=== PATIENT | male | born 1955 | race Caucasian/White ===

== ENCOUNTER 2020-03-16 13:19 | Outpatient (CLI) | payer OTHER | END 2020-03-16 13:20 | disposition home or self-care (01) | LOC: DTY/OP 13:19 | PROVIDERS: ATTEND Surgery | DX: E66.01 Morbid (severe) obesity due to excess calories (principal) | CPT/HCPCS: 97802 ==

== ENCOUNTER 2020-04-15 08:06 | Outpatient (CLI) | payer OTHER | END 2020-04-15 08:07 | disposition home or self-care (01) | LOC: DTY/OP 08:06 | PROVIDERS: ATTEND Surgery | DX: E66.01 Morbid (severe) obesity due to excess calories (principal) | CPT/HCPCS: 97802 ==

== ENCOUNTER 2020-04-24 13:05 | Outpatient (CLI) | payer OTHER ==
--- NOTE | 2020-04-24 15:15 | ULT ---
US Renal Bilateral STANDARD History: Renal insufficiency Comparison: None. Findings: Real-time grayscale and color evaluation of the kidneys and urinary bladder was performed. Right kidney measures 10.9 x 7.1 x 6.7 cm and the left kidney measures 12.4 x 6.3 x 6.5 cm. No renal mass, hydronephrosis or abnormal calcifications. Urinary bladder is unremarkable. Impression: No evidence for obstructive uropathy.
== END 2020-04-24 13:06 | disposition home or self-care (01) ==
LOC: BICULT 13:05
PROVIDERS: ATTEND Urology
DX: N40.1 Benign prostatic hyperplasia with lower urinary tract symptoms (principal); N28.9 Disorder of kidney and ureter, unspecified
CPT/HCPCS: 76770

== ENCOUNTER 2020-05-29 06:33 | Outpatient (CLI) | payer OTHER ==
[2020-05-29 11:46] LABS: Hemoglobin 15.5 g/dL (14.0-18.0); Mean Corpuscular HGB CONC 33.5 G/DL (32.0-36.0); Mean Corpuscular Hemoglobin 32.8 PG (27.0-33.0); Mean Corpuscular Volume 97.7 fl (80.0-100.0); Mean Platelet Volume 10.3 fl (7.4-10.4); Platelet Count 273 10x3/uL (130-400); Red Blood Cell (RBC) Count 4.73 10x6/uL (4.40-5.80); White Blood Cell (WBC) Count 6.8 10x3/uL (4.5-11.0)
[2020-05-29 11:54] LABS: Bilirubin Neg (Negative); Blood, Urine Negative (Negative); Clarity Clear (Clear); Glucose, Urine (Dipstick) Normal (Negative); Ketone, Urine Negative (Negative); Leukocyte Negative (Negative); Nitrite Negative (Negative); Protein, Urine (Dipstick) Negative (Neg-Trace); Specific Gravity, Urine 1.015 (1.002-1.036); Urobilinogen Normal mg/dL (Less than 2)
[2020-05-29 12:09] LABS: INR-International Normal Ratio 1.2; PTT 36.2 sec (22.0-33.0); Prothrombin Time 12.7 sec (9.5-12.1)
[2020-05-29 12:22] LABS: Anion Gap 16 mmol/L (10-20); BUN (Urea Nitrogen) 29 mg/dL (8.4-25.7); Calc. Creatinine Clearance 0 mL/min (70-130); Calcium 9.4 mg/dL (7.8-10.44); Carbon Dioxide 28 mmol/L (23-31); Chloride 103 mmol/L (98-107); Glucose 78 mg/dL (80-115); Potassium 4.7 mmol/L (3.5-5.1); Sodium 142 mmol/L (136-145)
[2020-05-29 12:43] LABS: RBC/HPF None Seen HPF (0-3); WBC/HPF 0-3 HPF (0-3)
[2020-05-29 12:44] LABS: Bacteria/HPF Rare-Few HPF (None Seen); Squamous Epithelial 0-3 HPF (0-3)
[2020-05-29 17:12] LABS: SARS-CoV-2 MS2 Positive; SARS-CoV-2 N Gene Negative; SARS-CoV-2 S Gene Negative; SARS-CoV-2 by NAA Not Detected (NotDetected); SARS-CoV-2 orf1ab Negative
== END 2020-05-29 06:34 | disposition home or self-care (01) ==
LOC: LABBT 06:33
PROVIDERS: ATTEND Urology
DX: Z01.812 Encounter for preprocedural laboratory examination (principal); N40.1 Benign prostatic hyperplasia with lower urinary tract symptoms; I48.20 Chronic atrial fibrillation, unspecified; N28.9 Disorder of kidney and ureter, unspecified; E66.9 Obesity, unspecified; R35.0 Frequency of micturition; Z81.8 Family history of other mental and behavioral disorders; Z20.828 Contact with and (suspected) exposure to other viral communicable diseases
CPT/HCPCS: 80048; 81001; 85027; 85610; 85730; 87086; 87635; U0003

== ENCOUNTER 2020-06-03 06:27 | Day surgery (SDC) | payer OTHER ==
[2020-05-29 14:11] VITALS: BMI 39.9
[2020-06-03] MEDS ORDERED: Levofloxacin 500 mg/D5W 100 ml Premix Bag ONE (07:47)
[2020-06-03 07:56] LABS: INR-International Normal Ratio 1.1; PTT 31.4 sec (22.9-36.1); Prothrombin Time 14.1 sec (12.0-14.7)
[2020-06-03] MEDS ORDERED: Fentanyl 100 MCG/2 ML VIAL ONE (08:13)
[2020-06-03] MEDS ORDERED: Ondansetron PF 4 MG/2 ML Vial ONE (09:28)
[2020-06-03] MEDS ORDERED: Lidocaine 1% PF 5 ML VIAL ONE (09:28)
[2020-06-03] MEDS ORDERED: PROPOFOL 200 MG/20 ML VIAL ONE (09:28)
--- NOTE | 2020-06-03 09:30 | OP ---
DATE OF PROCEDURE: 06/03/2020 PREOPERATIVE DIAGNOSIS: A 64-year-old male with history of benign prostatic hyperplasia, IPSS score of 28. POSTOPERATIVE DIAGNOSIS: A 64-year-old male with history of benign prostatic hyperplasia, IPSS score of 28. PROCEDURE PERFORMED: Cystoscopy, UroLift implant x4. ANESTHESIA: LMA. COMPLICATIONS: None apparent. DISPOSITION: To recovery room in stable condition. INDICATIONS FOR PROCEDURE AND HISTORY: Mr. Edge is a pleasant 64-year-old male, referred for BPH as he desired to proceed with UroLift, he states that he researched this and would like to proceed and would like to come off with his tamsulosin. Risks and complications of the procedure have been discussed with him in detail including, but not limited to, bleeding, pain, infection, injury to adjacent organs, chronic and possible need for removal of UroLift implant, possible incrustation, chronic pain. All questions answered to his satisfaction and desired to proceed. DESCRIPTION OF PROCEDURE: After informed consent was obtained, the patient was taken to the operating room, placed in dorsal lithotomy position with the genital area prepped and draped in the usual surgical sterile fashion. A 21-Egyptian cystoscope was utilized for cystoscopy, which demonstrated normal anterior urethra. Prostatic urethra demonstrated mild bilobar hyperplasia, obstructing component is mostly high median bar. Bladder was entered, which demonstrated trabeculation. UOs were about 3 mm proximal to the bladder neck with no bladder tumor seen. At this time, we transitioned to the UroLift device with a visual obturator. A total of four implants were placed, stacking maneuver performed at the level of the base of the prostate. This opened up a nice anterior channel, noted for him. There was no evidence of visible implant near the level of the bladder neck. He tolerated the procedure well. An 18-Egyptian Portillo catheter placed with three way Portillo. We will watch him for degree of hematuria and anticipate voiding trial versus discharge with Portillo catheter overnight. Job ID: [id number] [facility] [place]
[2020-06-03] MEDS ORDERED: Phenazopyridine HCl 100 MG TAB ONE (09:36)
== END 2020-06-03 12:50 | disposition home or self-care (01) ==
LOC: SDC 06:27
PROVIDERS: ATTEND Urology
PROC: 0T7D8DZ Dilation of Urethra with Intraluminal Device, Via Natural or Artificial Opening Endoscopic (ICD-10-PCS; principal; 2020-06-03)
DX: N40.1 Benign prostatic hyperplasia with lower urinary tract symptoms (principal); R35.0 Frequency of micturition; N32.89 Other specified disorders of bladder; I48.20 Chronic atrial fibrillation, unspecified; N28.9 Disorder of kidney and ureter, unspecified; I10 Essential (primary) hypertension; G47.30 Sleep apnea, unspecified; J30.2 Other seasonal allergic rhinitis; G89.29 Other chronic pain; M54.9 Dorsalgia, unspecified; G47.33 Obstructive sleep apnea (adult) (pediatric); M15.9 Polyosteoarthritis, unspecified; I73.9 Peripheral vascular disease, unspecified; E66.9 Obesity, unspecified; Z68.41 Body mass index [BMI] 40.0-44.9, adult; Z79.01 Long term (current) use of anticoagulants; Z79.1 Long term (current) use of non-steroidal anti-inflammatories (NSAID); Z79.899 Other long term (current) drug therapy
CPT/HCPCS: 85610; 85730; C1889; J1956; J2405; J2704; J3010

== ENCOUNTER 2020-07-24 09:35 | Outpatient (CLI) | payer OTHER | END 2020-07-24 09:36 | disposition home or self-care (01) | LOC: DTY/OP 09:35 | PROVIDERS: ATTEND Surgery | DX: Z01.818 Encounter for other preprocedural examination (principal); Z71.3 Dietary counseling and surveillance | CPT/HCPCS: 97802 ==

== ENCOUNTER 2020-07-31 08:31 | Outpatient (CLI) | payer OTHER | END 2020-07-31 08:32 | disposition home or self-care (01) | LOC: DTY/OP 08:31 | PROVIDERS: ATTEND Surgery | DX: Z01.818 Encounter for other preprocedural examination (principal) | CPT/HCPCS: 97802 ==

== ENCOUNTER 2020-08-06 09:23 | Outpatient (CLI) | payer OTHER | END 2020-08-06 09:24 | disposition home or self-care (01) | LOC: DTY/OP 09:23 | PROVIDERS: ATTEND Surgery | DX: Z01.812 Encounter for preprocedural laboratory examination (principal) | CPT/HCPCS: 97802 ==

== ENCOUNTER 2020-08-20 08:49 | Outpatient (CLI) | payer OTHER | END 2020-08-20 08:50 | disposition home or self-care (01) | LOC: DTY/OP 08:49 | PROVIDERS: ATTEND Surgery | DX: Z01.812 Encounter for preprocedural laboratory examination (principal) | CPT/HCPCS: 97802 ==

== ENCOUNTER 2020-08-26 08:22 | Outpatient (CLI) | payer OTHER | END 2020-08-26 08:23 | disposition home or self-care (01) | LOC: DTY/OP 08:22 | PROVIDERS: ATTEND Surgery | DX: Z01.812 Encounter for preprocedural laboratory examination (principal) | CPT/HCPCS: 97802 ==

== ENCOUNTER 2020-09-14 11:37 | Outpatient (CLI) | payer OTHER | END 2020-09-14 11:38 | disposition home or self-care (01) | LOC: BICRAD 11:37 | PROVIDERS: ATTEND Internal Medicine Pulmonary Disease | DX: R06.00 Dyspnea, unspecified (principal) | CPT/HCPCS: 71046 ==

== ENCOUNTER 2020-09-15 08:35 | Outpatient (CLI) | payer OTHER | END 2020-09-15 08:36 | disposition home or self-care (01) | LOC: DTY/OP 08:35 | PROVIDERS: ATTEND Surgery | DX: Z01.818 Encounter for other preprocedural examination (principal) | CPT/HCPCS: 97802 ==

== ENCOUNTER 2020-09-24 08:39 | Outpatient (CLI) | payer OTHER | END 2020-09-24 08:40 | disposition home or self-care (01) | LOC: DTY/OP 08:39 | PROVIDERS: ATTEND Surgery | DX: Z01.818 Encounter for other preprocedural examination (principal) | CPT/HCPCS: 97802 ==

== ENCOUNTER 2020-11-12 09:48 | Outpatient (CLI) | payer OTHER ==
[2020-11-12 18:31] LABS: SARS-CoV-2 PCR by NAA Not Detected (NotDetected)
== END 2020-11-12 09:49 | disposition home or self-care (01) ==
LOC: LABBT 09:48
PROVIDERS: ATTEND Surgery
DX: Z01.812 Encounter for preprocedural laboratory examination (principal); I10 Essential (primary) hypertension; Z20.822 Contact with and (suspected) exposure to COVID-19
CPT/HCPCS: 87635; U0003; U0005

== ENCOUNTER 2020-11-12 10:30 | Inpatient (IN) | payer OTHER, MEDICARE ==
[2020-11-17] MEDS ORDERED: Scopolamine 1.5 mg/72 hour Patch ONE (06:25)
[2020-11-17] MEDS ORDERED: cefOXitin Sodium/Dextrose 2 GM/50 ML BAG ONE (06:25)
[2020-11-17] MEDS ORDERED: Enoxaparin Sodium 40 MG/0.4 ML SYRINGE ONE (06:26)
[2020-11-17] MEDS ORDERED: Fentanyl 100 MCG/2 ML VIAL ONE ×3 (06:45→09:59)
[2020-11-17] MEDS ORDERED: Lidocaine 1% w/Epinephrine 1:100K 20 ML VIAL ONE (06:46)
[2020-11-17] MEDS ORDERED: Bupivacaine 0.25% HCL 30 ML VIAL ONE (06:46)
[2020-11-17] MEDS ORDERED: Hydrocodone-Acetamin 15 ML UDCUP PO PRN (06:57)
[2020-11-17] MEDS ORDERED: Dextrose 5% in Water 1,000 ML IV PRN (06:57)
[2020-11-17] MEDS ORDERED: Promethazine HCl 25 MG/ML VIAL IM PRN (06:57)
[2020-11-17] MEDS ORDERED: hydrALAZINE 20 MG/ML VIAL SLOW IVP PRN (06:57)
[2020-11-17] MEDS ORDERED: Ondansetron PF 4 MG/2 ML Vial IVP PRN (06:57)
[2020-11-17] MEDS ORDERED: Dextrose 50% Abboject 50 ML SYRINGE SLOW IVP PRN (06:57)
[2020-11-17] MEDS ORDERED: diphenhydrAMINE 50 MG/ML VIAL IVP PRN (06:57)
[2020-11-17] MEDS ORDERED: Morphine 2 MG/ML VIAL SLOW IVP PRN (06:57)
[2020-11-17] MEDS ORDERED: PHENYLEPHRINE-NS 100 MCG/ML 10 ML SYRINGE ONE (07:12)
[2020-11-17] MEDS ORDERED: Glycopyrrolate 0.2 MG/ML 5 ML SYRINGE ONE (07:12)
[2020-11-17] MEDS ORDERED: PROPOFOL 200 MG/20 ML VIAL ONE (07:12)
[2020-11-17] MEDS ORDERED: Lidocaine 1% PF 5 ML VIAL ONE (07:12)
[2020-11-17] MEDS ORDERED: Metoprolol Tartrate 5 MG/5 ML VIAL ONE (07:12)
[2020-11-17] MEDS ORDERED: Dexamethasone 20 MG/5 ML VIAL ONE (07:12)
[2020-11-17] MEDS ORDERED: Rocuronium Bromide 10 MG/ML (10ML VIAL) ONE (07:12)
[2020-11-17] MEDS ORDERED: Sodium Chloride 0.9% (PF) 10 ML VIAL FS PRN (07:30)
[2020-11-17] MEDS ORDERED: SUGAMMADEX SODIUM 200 MG/2 ML VIAL ONE (08:26)
[2020-11-17] MEDS ORDERED: Ondansetron PF 4 MG/2 ML Vial ONE (10:04)
[2020-11-17 13:06] VITALS: BMI 35.9
[2020-11-17] MEDS: D5 1/2 NS w/20 mEq KCL 1,000 ML IV SCH ×3 (13:37→20:25)
[2020-11-17] MEDS: Ketorolac Tromethamine 30 MG/ML VIAL IVP SCH ×3 (13:37→23:17)
[2020-11-17] MEDS: Pantoprazole 40 MG VIAL IVP SCH (13:57)
[2020-11-17] MEDS: Digoxin 0.125 MG TAB PO SCH (13:57)
[2020-11-18] MEDS: D5 1/2 NS w/20 mEq KCL 1,000 ML IV SCH ×2 (05:05→14:07)
[2020-11-18] MEDS: Ketorolac Tromethamine 30 MG/ML VIAL IVP SCH ×2 (05:07→11:15)
[2020-11-18 05:46] LABS: #Lymphocytes 1.5 thou/uL (1.20-3.40); #Monocytes 0.6 thou/uL (0.11-0.59); #Neutrophils 4.1 thou/uL (1.40-6.50); %Basophils 0.6 % (0.0-1.0); %Eosinophils 0.7 % (0.0-10.0); %Lymphocytes 23.5 % (21.0-51.0); %Monocytes 9.6 % (0.0-10.0); %Neutrophils 65.6 % (42.0-75.0); Hemoglobin 13.3 g/dL (14.0-18.0); Mean Corpuscular HGB CONC 34.1 g/dL (32.0-36.0); Mean Corpuscular Volume 99.8 fL (78.0-98.0); Mean Platelet Volume 7.4 fL (7.4-10.4); Platelet Count 245 thou/uL (130-400); RBC Distribution Width 11.4 % (11.5-14.5); White Blood Cell (WBC) Count 6.3 thou/uL (4.8-10.8)
[2020-11-18] MEDS ORDERED: Enoxaparin Sodium 40 MG/0.4 ML SYRINGE SC SCH (06:00)
[2020-11-18 06:06] LABS: Anion Gap 10 mmol/L (10-20); BUN (Urea Nitrogen) 17 mg/dL (8.4-25.7); Calc. Creatinine Clearance 96 mL/min (70-130); Calcium 8.8 mg/dL (7.8-10.44); Carbon Dioxide 27 mmol/L (23-31); Chloride 105 mmol/L (98-107); Glucose 109 mg/dL (80-115); Potassium 4.3 mmol/L (3.5-5.1); Sodium 138 mmol/L (136-145)
[2020-11-18] MEDS: Digoxin 0.125 MG TAB PO SCH (08:06)
[2020-11-18] MEDS: Pantoprazole 40 MG VIAL IVP SCH (08:07)
[2020-11-18 15:50] VITALS: BP 116/71; TEMP 98
[2020-11-19] MEDS ORDERED: Enoxaparin Sodium 40 MG/0.4 ML SYRINGE SC SCH (09:00)
== END 2020-11-18 15:54 | disposition home or self-care (01) | DRG 620 ==
LOC: SURG A 11-17 05:59 → EDSTATUS 11-17 10:30 → SURG A 11-17 12:46
PROVIDERS: ADMIT Surgery; ATTEND Surgery
PROC: 0DB64Z3 Excision of Stomach, Percutaneous Endoscopic Approach, Vertical (ICD-10-PCS; principal; 2020-11-17)
PROC: 8E0W4CZ Robotic Assisted Procedure of Trunk Region, Percutaneous Endoscopic Approach (ICD-10-PCS; 2020-11-17)
DX: E88.81 Metabolic syndrome and other insulin resistance (principal); I48.20 Chronic atrial fibrillation, unspecified; Z68.42 Body mass index [BMI] 45.0-49.9, adult; E66.01 Morbid (severe) obesity due to excess calories; I10 Essential (primary) hypertension; Z20.822 Contact with and (suspected) exposure to COVID-19; Z23 Encounter for immunization; E78.5 Hyperlipidemia, unspecified; N40.1 Benign prostatic hyperplasia with lower urinary tract symptoms; R33.8 Other retention of urine; G47.33 Obstructive sleep apnea (adult) (pediatric); G89.29 Other chronic pain; M89.49 Other hypertrophic osteoarthropathy, multiple sites; E11.51 Type 2 diabetes mellitus with diabetic peripheral angiopathy without gangrene; M54.5 Low back pain; Z79.899 Other long term (current) drug therapy; Z90.49 Acquired absence of other specified parts of digestive tract; Z79.01 Long term (current) use of anticoagulants
CPT/HCPCS: 36415; 80048; 85025; 88307; 90471; 90732; C9113; G0009; J0694; J1100; J1650; J1885; J2405; J2704; J3010; J3480; S0020

== ENCOUNTER 2024-01-16 08:45 | Outpatient (CLI) | payer OTHER | END 2024-01-16 08:46 | disposition home or self-care (01) | LOC: PET 08:45 | PROVIDERS: ATTEND Internal Medicine Hematology & Oncology | DX: C22.0 Liver cell carcinoma (principal); K76.9 Liver disease, unspecified; R59.0 Localized enlarged lymph nodes; M89.9 Disorder of bone, unspecified; K72.90 Hepatic failure, unspecified without coma | CPT/HCPCS: 78815; A9552 ==

== ENCOUNTER 2024-02-13 12:42 | Outpatient (CLI) | payer OTHER | END 2024-02-13 12:43 | disposition home or self-care (01) | LOC: RAD 12:42 | PROVIDERS: ATTEND Internal Medicine Hematology & Oncology | DX: M25.512 Pain in left shoulder (principal); M89.8X1 Other specified disorders of bone, shoulder; M19.012 Primary osteoarthritis, left shoulder; S42.002A Fracture of unspecified part of left clavicle, initial encounter for closed fracture ==

== ENCOUNTER 2024-03-20 09:39 | Outpatient (CLI) | payer OTHER ==
[2024-03-20 11:06] LABS: #Basophils 0.06 10x3/uL (0.0-0.2); %Basophils 0.5 % (0.0-1.0); %Eosinophils 0.2 % (0.0-10.0); %Lymphocytes 7.7 % (21.0-51.0); %Neutrophils 84.8 % (42.0-75.0); Hematocrit 37.8 % (42.0-52.0); Hemoglobin 12.2 g/dL (14.0-18.0); Mean Corpuscular HGB CONC 32.3 g/dL (32.0-36.0); Mean Corpuscular Hemoglobin 33.2 pg (27.0-31.0); Mean Platelet Volume 9.7 fL (7.4-10.4); Platelet Count 229 10x3/uL (130-400); RBC Distribution Width 16.4 % (11.5-14.5); Red Blood Cell (RBC) Count 3.67 mill/uL (4.70-6.10)
[2024-03-20 11:23] LABS: INR-International Normal Ratio 1.1; Prothrombin Time 14.3 sec (12.0-14.7)
[2024-03-20 11:24] LABS: PTT 32.1 sec (22.9-36.1)
[2024-03-20 11:31] LABS: Anion Gap 13 mmol/L (10-20); BUN (Urea Nitrogen) 15 mg/dL (8.4-25.7); Calc. Creatinine Clearance 0 mL/min (70-130); Calcium 9.9 mg/dL (7.8-10.44); Carbon Dioxide 27 mmol/L (23-31); Chloride 104 mmol/L (98-107); Estimated GFR 93; Glucose 87 mg/dL (80-115); Potassium 4.6 mmol/L (3.5-5.1); Sodium 139 mmol/L (136-145)
[2024-03-20 14:22] LABS: ALT (SGPT) 5 U/L (8-55); AST (SGOT) 28 U/L (5-34); Albumin 3.3 g/dL (3.4-4.8); Alkaline Phosphatase 106 U/L (40-110); Bilirubin, Direct 0.6 mg/dL (0.1-0.3); Bilirubin, Total 1.7 mg/dL (0.2-1.2); Protein, Total 7.2 g/dL (5.8-8.1)
== END 2024-03-20 09:40 | disposition home or self-care (01) ==
LOC: LABBT 09:39
PROVIDERS: ATTEND Orthopaedic Surgery
DX: Z01.812 Encounter for preprocedural laboratory examination (principal); C79.9 Secondary malignant neoplasm of unspecified site
CPT/HCPCS: 80048; 80076; 80162; 85025; 85610; 85730

== ENCOUNTER 2024-03-22 07:58 | Observation (INO) | payer OTHER ==
[2024-03-20 10:08] VITALS: BMI 21.3
[2024-03-22] MEDS ORDERED: PROPOFOL 40 ML ONE (09:07)
[2024-03-22] MEDS ORDERED: fentaNYL PF 100 MCG/2 ML SYRINGE ONE (10:23)
[2024-03-22] MEDS ORDERED: CEFAZOLIN 2 GM VIAL ONE (10:27)
[2024-03-22] MEDS ORDERED: Sodium Chloride 0.9% 100 ML ONE (10:27)
[2024-03-22] MEDS ORDERED: Lidocaine 1% PF 5 ML VIAL ONE (10:42)
[2024-03-22] MEDS ORDERED: Dexamethasone 20 MG/5 ML VIAL ONE (10:42)
[2024-03-22] MEDS ORDERED: PHENYLEPHRINE-NS 100 MCG/ML 10 ML SYRINGE ONE (11:37)
[2024-03-22] MEDS ORDERED: fentaNYL 50 mcg/mL 1 mL Vial ONE ×3 (12:13→15:42)
[2024-03-22] MEDS ORDERED: Morphine IR Tab 15 MG TAB PO PRN (15:03)
[2024-03-22] MEDS: CEFAZOLIN 2 GM in Sodium Chloride 0.9% 100 ML IVPB SCH (18:02)
[2024-03-22] MEDS: Digoxin 0.125 MG TAB PO SCH (20:37)
[2024-03-22] MEDS: Morphine ER 15 MG TAB PO SCH (20:37)
[2024-03-23 05:28] LABS: #Basophils 0.03 10x3/uL (0.0-0.2); #Eosinphils Less than 0.03 10x3/uL (0.0-0.7); %Basophils 0.3 % (0.0-1.0); %Lymphocytes 6.6 % (21.0-51.0); %Monocytes 8.4 % (0.0-10.0); %Neutrophils 83.9 % (42.0-75.0); Hematocrit 33.8 % (42.0-52.0); Mean Corpuscular HGB CONC 32.5 g/dL (32.0-36.0); Mean Corpuscular Hemoglobin 33.3 pg (27.0-31.0); Mean Corpuscular Volume 102.4 fL (78.0-98.0); Mean Platelet Volume 9.5 fL (7.4-10.4); Platelet Count 231 10x3/uL (130-400); RBC Distribution Width 16.2 % (11.5-14.5)
[2024-03-23 08:33] VITALS: BP 104/60; TEMP 97.9
[2024-03-23] MEDS ORDERED: Ondansetron HCl/PF 8 MG in Sodium Chloride 0.9% 50 ML IVPB SCH (09:15)
[2024-03-23] MEDS: Ondansetron PF 4 MG/2 ML Vial IVP SCH (10:35)
[2024-03-24] MEDS ORDERED: Famotidine/PF 20 mg/2ml Vial SLOW IVP SCH (09:00)
== END 2024-03-23 12:10 | disposition home or self-care (01) ==
LOC: INTOOBSV 07:58 → SURG A 07:58 → EDSTATUS 13:03 → SURG B 16:17
PROVIDERS: ADMIT Orthopaedic Surgery; ATTEND Orthopaedic Surgery
DX: S72.102A Unspecified trochanteric fracture of left femur, initial encounter for closed fracture (principal); D49.2 Neoplasm of unspecified behavior of bone, soft tissue, and skin; I10 Essential (primary) hypertension; I48.91 Unspecified atrial fibrillation; G47.33 Obstructive sleep apnea (adult) (pediatric); I73.9 Peripheral vascular disease, unspecified; Z79.899 Other long term (current) drug therapy; X58.XXXA Exposure to other specified factors, initial encounter
CPT/HCPCS: 27506; 73552; 85025; 97116; C1713 ×3; J2405; J2704; J3010; 36415; 88307; J1100

== ENCOUNTER 2024-04-28 11:42 | Emergency (ER) | payer OTHER ==
[2024-04-28 12:28] LABS: #Basophils Less than 0.03 10x3/uL (0.0-0.2); #Eosinophils Less than 0.03 10x3/uL (0.0-0.7); %Basophils 0.3 % (0.0-1.0); %Lymphocytes 11.9 % (21.0-51.0); %Monocytes 11.6 % (0.0-10.0); %Neutrophils 75.4 % (42.0-75.0); Hematocrit 33.5 % (42.0-52.0); Hemoglobin 11.3 g/dL (14.0-18.0); Mean Corpuscular HGB CONC 33.7 g/dL (32.0-36.0); Mean Corpuscular Volume 103.7 fL (78.0-98.0); Mean Platelet Volume 9.1 fL (7.4-10.4); Platelet Count 305 10x3/uL (130-400); RBC Distribution Width 14.5 % (11.5-14.5); Red Blood Cell (RBC) Count 3.23 mill/uL (4.70-6.10)
[2024-04-28] MEDS ORDERED: Iopamidol-370 76% 500 ML MDV (1 ML CHARGE) ONE (12:46)
[2024-04-28 13:12] LABS: Troponin I 0.031 ng/mL (< 0.028)
[2024-04-28 13:17] LABS: ALT (SGPT) 7 U/L (8-55); AST (SGOT) 39 U/L (5-34); Albumin 3.2 g/dL (3.4-4.8); Alkaline Phosphatase 342 U/L (40-110); Anion Gap 16 mmol/L (10-20); BUN (Urea Nitrogen) 15 mg/dL (8.4-25.7); Bilirubin, Total 1.4 mg/dL (0.2-1.2); Calc. Creatinine Clearance 0 mL/min (70-130); Calcium 8.8 mg/dL (7.8-10.44); Carbon Dioxide 20 mmol/L (23-31); Chloride 104 mmol/L (98-107); Estimated GFR 97; Globulin 4.1 g/dL (2.4-3.5); Glucose 106 mg/dL (80-115); Lipase 22 U/L (8-78); Potassium 4.5 mmol/L (3.5-5.1); Protein, Total 7.3 g/dL (5.8-8.1); Sodium 135 mmol/L (136-145)
[2024-04-28 14:11] LABS: Actual Bicarbonate (HCO3v) 24.3 mEq/L (22-28); Analyzer IN Cardio ER; Base Excess -1.1 mEq/L (-2.0 to +3.0); Chloride (VBG) 102 mmol/L (98-106); Hematocrit-VBG 34 % (42.0-52.0); Hemoglobin (Hb) 11.6 g/dL (12.6-17.4); Potassium (VBG) 4.58 mmol/L (3.70-5.30); Sodium 135 mmol/L (133-146); pH (venous) 7.365 (7.32-7.43)
[2024-04-28 14:22] LABS: Troponin I 0.023 ng/mL (< 0.028)
[2024-04-28 16:30] LABS: CAUTI Indications for Culture Fever or rigors; RBC/HPF 0-3 HPF (0-3); WBC/HPF 0-3 HPF (0-3)
[2024-04-28 16:31] LABS: Clarity Hazy (Clear)
[2024-04-28 16:32] LABS: Bilirubin 1+ (Negative); Glucose, Urine (Dipstick) Negative (Negative); Ketone, Urine Negative (Negative); Leukocyte Negative Leu/uL (Negative); Nitrite Negative (Negative); Protein, Urine (Dipstick) 30 mg/dL (Neg-Trace); Urobilinogen 12 mg/dL (Less than 2)
[2024-04-28 16:33] LABS: Blood, Urine Negative (Negative)
[2024-04-28 16:36] LABS: Bacteria/HPF Rare-Few HPF (None Seen); Squamous Epithelial 0-3 HPF (0-3)
[2024-04-28 16:37] LABS: Urine Culture Reflex No No
== END 2024-04-28 17:16 | disposition home or self-care (01) ==
LOC: ERS 11:42
DX: K59.00 Constipation, unspecified (principal); E86.0 Dehydration; I10 Essential (primary) hypertension; C25.9 Malignant neoplasm of pancreas, unspecified; C78.7 Secondary malignant neoplasm of liver and intrahepatic bile duct; Z55.0 Illiteracy and low-level literacy; Z79.01 Long term (current) use of anticoagulants; Z79.899 Other long term (current) drug therapy
CPT/HCPCS: 71275; 74177; 80053; 81001; 82805; 83605; 83690; 83880; 84484 ×2; 85025; 87040; 87086; 93005; Q9967; 36415; 96360

== ENCOUNTER 2024-05-07 00:53 | Inpatient (IN) | payer OTHER ==
[2024-05-07] MEDS ORDERED: Acetaminophen 650 MG Suppository PR PRN (01:40)
[2024-05-07] MEDS ORDERED: Ondansetron PF 4 MG/2 ML Vial IVP PRN (01:40)
[2024-05-07] MEDS ORDERED: Ondansetron ODT 4 MG TAB PO PRN (01:40)
[2024-05-07] MEDS ORDERED: Morphine IR Tab 15 MG TAB PO PRN (01:58)
[2024-05-07 02:00] VITALS: BMI 19.1
[2024-05-07 03:19] LABS: Vancomycin, Random 7.2 ug/mL (See Comment)
[2024-05-07 03:22] LABS: ALT (SGPT) 8 U/L (8-55); AST (SGOT) 27 U/L (5-34); Albumin 2.8 g/dL (3.4-4.8); Alkaline Phosphatase 312 U/L (40-110); Anion Gap 14 mmol/L (10-20); BUN (Urea Nitrogen) 18 mg/dL (8.4-25.7); Bilirubin, Total 1.7 mg/dL (0.2-1.2); Calc. Creatinine Clearance 102 mL/min (70-130); Calcium 8.5 mg/dL (7.8-10.44); Carbon Dioxide 21 mmol/L (23-31); Chloride 104 mmol/L (98-107); Estimated GFR 104; Globulin 3.2 g/dL (2.4-3.5); Glucose 99 mg/dL (80-115); Potassium 4.5 mmol/L (3.5-5.1); Sodium 134 mmol/L (136-145)
[2024-05-07 03:27] LABS: Hematocrit 31.1 % (42.0-52.0); Hemoglobin 9.9 g/dL (14.0-18.0); Mean Corpuscular HGB CONC 31.8 g/dL (32.0-36.0); Mean Corpuscular Hemoglobin 33.8 pg (27.0-31.0); Mean Corpuscular Volume 106.1 fL (78.0-98.0); Platelet Count 105 10x3/uL (130-400); RBC Distribution Width 14.3 % (11.5-14.5); Red Blood Cell (RBC) Count 2.93 mill/uL (4.70-6.10)
[2024-05-07 04:12] LABS: Anisocytosis SLIGHT = 6-15 cells HPF (0-5); Band 5 % (5-11); Burr Cells SLIGHT = 2-5 cells HPF (0-1); Dohle Bodies SLIGHT; Eosinophils 1 % (0-10); Large Platelets 8.2 % (0-5); Lymphocytes 53 % (21-51); Macrocytosis SLIGHT = 6-15 cells HPF (0-5); Monocytes 4 % (0-10); Myelocyte 1 % (0-0); Neutrophil 35 % (42-75); Ovalocytes SLIGHT = 2-5 cells HPF (0-1); Platelet Adequacy Comment Platelets Decreased; Polychromasia SLIGHT = 2-3 cells HPF (0-2); Smudge Cells 24.5 %; Tear Drops SLIGHT = 2-5 cells HPF (0-1); Toxic Granulation MODERATE
[2024-05-07] MEDS: Cefepime 2 GM in Sodium Chloride 0.9% 100 ML IVPB SCH (05:44)
[2024-05-07] MEDS: VANCOMYCIN 1.25 GM/250 ML BAG 1.25 GM in Premix 1 BAG IVPB SCH (06:11)
[2024-05-07] MEDS: Acetaminophen 325 MG TAB PO SCH (06:17)
[2024-05-07] MEDS: Docusate 100 MG CAP PO SCH (08:55)
[2024-05-07] MEDS: Famotidine 20 MG TAB PO SCH (08:55)
[2024-05-07] MEDS: Famotidine/PF 20 mg/2ml Vial SLOW IVP SCH (08:55)
[2024-05-07] MEDS: Morphine ER 15 MG TAB PO SCH (08:55)
[2024-05-07] MEDS ORDERED: Vancomycin (BATCH) 1.5 GM in Premix 1 BAG IVPB SCH (09:00)
[2024-05-07] MEDS: HYDROcodone/Acetaminophen 10/325 mg Tablet PO PRN (11:55)
[2024-05-07] MEDS: Digoxin 0.125 MG TAB PO SCH (20:44)
[2024-05-07] MEDS: Rivaroxaban 10 MG TAB PO SCH (21:13)
[2024-05-08 05:30] LABS: ALT (SGPT) 6 U/L (8-55); AST (SGOT) 22 U/L (5-34); Albumin 2.5 g/dL (3.4-4.8); Alkaline Phosphatase 271 U/L (40-110); Anion Gap 12 mmol/L (10-20); BUN (Urea Nitrogen) 15 mg/dL (8.4-25.7); Bilirubin, Total 1.3 mg/dL (0.2-1.2); Calc. Creatinine Clearance 99 mL/min (70-130); Calcium 8.4 mg/dL (7.8-10.44); Carbon Dioxide 22 mmol/L (23-31); Chloride 105 mmol/L (98-107); Estimated GFR 103; Glucose 84 mg/dL (80-115); Potassium 4.7 mmol/L (3.5-5.1); Protein, Total 5.5 g/dL (5.8-8.1); Sodium 134 mmol/L (136-145)
[2024-05-08 05:37] LABS: Hematocrit 29.9 % (42.0-52.0); Hemoglobin 9.8 g/dL (14.0-18.0); Mean Corpuscular HGB CONC 32.8 g/dL (32.0-36.0); Mean Corpuscular Hemoglobin 33.6 pg (27.0-31.0); Mean Corpuscular Volume 102.4 fL (78.0-98.0); Mean Platelet Volume 10.8 fL (7.4-10.4); Platelet Count 92 10x3/uL (130-400); RBC Distribution Width 14.1 % (11.5-14.5); Red Blood Cell (RBC) Count 2.92 mill/uL (4.70-6.10)
[2024-05-08 06:57] LABS: Anisocytosis SLIGHT = 6-15 cells HPF (0-5); Band 23 % (5-11); Dohle Bodies SLIGHT; Large Platelets 2.8 % (0-5); Lymphocytes 12 % (21-51); Macrocytosis MODERATE=16-30 cells HPF (0-5); Metamyelocyte 2 % (0-0); Monocytes 17 % (0-10); Neutrophil 46 % (42-75); Nucleated RBC (Manual Ct) 1 % (0); Platelet Adequacy Comment Platelets Decreased; Tear Drops SLIGHT = 2-5 cells HPF (0-1); Toxic Granulation MARKED
[2024-05-08 15:28] VITALS: BP 107/69; TEMP 97.7
[2024-05-08] MEDS ORDERED: Rivaroxaban 10 MG TAB PO SCH (17:00)
[2024-05-10] MEDS ORDERED: FLU (Fluad Triv) TS24-25 (65UP)/MF59C/PF 45 MCG/0.5 ML Syringe IM ONE (09:00)
== END 2024-05-08 15:23 | disposition home or self-care (01) | DRG 436 ==
LOC: MSONC 00:53
PROVIDERS: ADMIT Student in an Organized Health Care Education/Training Program; ATTEND Internal Medicine
DX: C24.9 Malignant neoplasm of biliary tract, unspecified (principal); C25.9 Malignant neoplasm of pancreas, unspecified; C79.51 Secondary malignant neoplasm of bone; J91.8 Pleural effusion in other conditions classified elsewhere; D70.9 Neutropenia, unspecified; Z51.5 Encounter for palliative care; N40.0 Benign prostatic hyperplasia without lower urinary tract symptoms; I48.91 Unspecified atrial fibrillation; I73.9 Peripheral vascular disease, unspecified; I10 Essential (primary) hypertension; G47.33 Obstructive sleep apnea (adult) (pediatric); Z96.641 Presence of right artificial hip joint; Z92.21 Personal history of antineoplastic chemotherapy; Z87.891 Personal history of nicotine dependence; Z90.49 Acquired absence of other specified parts of digestive tract; Z98.84 Bariatric surgery status
CPT/HCPCS: 36415; 80053; 80202; 85025; 85060; 87081; 97139; J0692; J3370